=== PATIENT | female | born 1980 | race Caucasian/White ===

== ENCOUNTER 2019-03-18 07:25 | Outpatient (RCR) | payer OTHER, SELFPAY | END 2019-03-26 00:01 | LOC: MAMMO 07:25 | PROVIDERS: Family Provider Family Medicine; Visit Provider Family Medicine | DX: Z79.01 Long term (current) use of anticoagulants (principal); Z95.4 Presence of other heart-valve replacement; Z12.31 Encounter for screening mammogram for malignant neoplasm of breast | CPT/HCPCS: 36415 ×3; 77067; 85610 ×3 ==

== ENCOUNTER 2019-03-29 07:45 | Outpatient (CLI) | payer OTHER, SELFPAY ==
[2019-03-29 08:48] LABS: INR 1.59 (0.8-1.2)
== END 2019-03-29 07:46 | disposition home or self-care (01) ==
LOC: LAB 07:48
PROVIDERS: Family Provider Family Medicine; PCP Family Medicine; Visit Provider Internal Medicine Cardiovascular Disease
DX: Z95.4 Presence of other heart-valve replacement (principal); Z79.01 Long term (current) use of anticoagulants
CPT/HCPCS: 36415; 85610

== ENCOUNTER → 2019-04-23 09:47 | Outpatient (BNVA) | payer OTHER, SELFPAY | PROVIDERS: Family Provider Family Medicine; PCP Family Medicine; Visit Provider Nurse Practitioner Women's Health | DX: Z01.89 Encounter for other specified special examinations (principal) ==

== ENCOUNTER → 2019-04-26 12:32 | Outpatient (BNVA) | payer OTHER, SELFPAY | PROVIDERS: Family Provider Family Medicine; PCP Family Medicine; Visit Provider Family Medicine | DX: Z95.2 Presence of prosthetic heart valve (principal) | CPT/HCPCS: 85610 ==

== ENCOUNTER → 2019-05-03 13:28 | Outpatient (BNVA) | payer OTHER, SELFPAY | PROVIDERS: Family Provider Family Medicine; PCP Family Medicine; Visit Provider Family Medicine | DX: Z95.2 Presence of prosthetic heart valve (principal) | CPT/HCPCS: 85610 ==

== ENCOUNTER → 2019-05-10 11:32 | Outpatient (BNVA) | payer OTHER, SELFPAY | PROVIDERS: Family Provider Family Medicine; PCP Family Medicine; Visit Provider Family Medicine | DX: Z95.2 Presence of prosthetic heart valve (principal) | CPT/HCPCS: 85610 ==

== ENCOUNTER → 2019-05-17 11:47 | Outpatient (BNVA) | payer OTHER, SELFPAY | PROVIDERS: Family Provider Family Medicine; PCP Family Medicine; Visit Provider Family Medicine | DX: Z95.2 Presence of prosthetic heart valve (principal); Z79.01 Long term (current) use of anticoagulants | CPT/HCPCS: 85610 ==

== ENCOUNTER 2019-06-21 07:29 | Outpatient (RCR) | payer OTHER, SELFPAY ==
[2019-05-31 07:55] LABS: INR 1.72 (0.8-1.2)
[2019-06-21 08:20] LABS: INR 1.94 (0.8-1.2)
== END 2019-06-25 23:59 | disposition home or self-care (01) ==
LOC: LAB 07:29
PROVIDERS: Family Provider Family Medicine; PCP Family Medicine; Visit Provider Internal Medicine Cardiovascular Disease
DX: Z79.01 Long term (current) use of anticoagulants (principal); Z95.4 Presence of other heart-valve replacement
CPT/HCPCS: 36415; 85610

== ENCOUNTER 2019-07-19 07:49 | Outpatient (RCR) | payer OTHER, SELFPAY ==
[2019-07-19 08:33] LABS: INR 2.03 (0.8-1.2)
== END 2019-07-25 23:59 | disposition home or self-care (01) ==
LOC: LAB 07:49
PROVIDERS: Family Provider Family Medicine; PCP Family Medicine; Visit Provider Internal Medicine Cardiovascular Disease
DX: Z95.4 Presence of other heart-valve replacement (principal); Z79.01 Long term (current) use of anticoagulants
CPT/HCPCS: 36415; 85610

== ENCOUNTER 2019-08-15 07:28 | Outpatient (RCR) | payer OTHER, SELFPAY | END 2019-08-25 23:59 | disposition home or self-care (01) | LOC: LAB 07:28 | PROVIDERS: PCP Family Medicine; Visit Provider Internal Medicine Cardiovascular Disease | DX: Z79.01 Long term (current) use of anticoagulants (principal) | CPT/HCPCS: 36415; 85610 ==

== ENCOUNTER 2019-09-12 07:40 | Outpatient (RCR) | payer OTHER, SELFPAY ==
[2019-09-12 08:59] LABS: INR 1.58 (0.8-1.2)
== END 2019-09-24 23:59 | disposition home or self-care (01) ==
LOC: LAB 07:40
PROVIDERS: PCP Family Medicine; Visit Provider Internal Medicine Cardiovascular Disease
DX: Z79.01 Long term (current) use of anticoagulants (principal); Z95.4 Presence of other heart-valve replacement
CPT/HCPCS: 36415; 85610

== ENCOUNTER 2019-09-26 07:27 | Outpatient (CLI) | payer OTHER, SELFPAY ==
[2019-09-26 08:59] LABS: INR 1.54 (0.8-1.2)
== END 2019-09-26 07:28 | disposition home or self-care (01) ==
LOC: LAB 07:32
PROVIDERS: PCP Family Medicine; Visit Provider Internal Medicine Cardiovascular Disease
DX: Z79.01 Long term (current) use of anticoagulants (principal)
CPT/HCPCS: 36415; 85610

== ENCOUNTER 2019-10-10 07:24 | Outpatient (CLI) | payer OTHER, SELFPAY ==
[2019-10-10 07:59] LABS: INR 1.77 (0.8-1.2)
== END 2019-10-10 07:25 | disposition home or self-care (01) ==
LOC: LAB 07:26
PROVIDERS: PCP Family Medicine; Visit Provider Internal Medicine Cardiovascular Disease
DX: Z79.01 Long term (current) use of anticoagulants (principal); Z95.4 Presence of other heart-valve replacement
CPT/HCPCS: 85610

== ENCOUNTER 2019-10-24 07:28 | Outpatient (RCR) | payer OTHER, SELFPAY ==
[2019-10-24 08:17] LABS: INR 1.69 (0.8-1.2)
== END 2019-10-25 23:59 | disposition home or self-care (01) ==
LOC: LAB 07:28
PROVIDERS: PCP Family Medicine; Visit Provider Internal Medicine Cardiovascular Disease
DX: Z79.01 Long term (current) use of anticoagulants (principal); Z95.4 Presence of other heart-valve replacement
CPT/HCPCS: 36415; 85610

== ENCOUNTER 2019-11-21 07:25 | Outpatient (RCR) | payer OTHER, SELFPAY ==
[2019-11-07 08:07] LABS: INR 2.08 (0.8-1.2)
[2019-11-21 08:13] LABS: INR 1.87 (0.8-1.2)
== END 2019-11-25 23:59 | disposition home or self-care (01) ==
LOC: LAB 07:25
PROVIDERS: PCP Family Medicine; Visit Provider Internal Medicine Cardiovascular Disease
DX: Z79.01 Long term (current) use of anticoagulants (principal); Z95.4 Presence of other heart-valve replacement
CPT/HCPCS: 36415; 85610

== ENCOUNTER 2019-12-19 07:32 | Outpatient (RCR) | payer OTHER, SELFPAY ==
[2019-12-19 08:35] LABS: INR 1.87 (0.8-1.2)
== END 2019-12-25 23:59 | disposition home or self-care (01) ==
LOC: LAB 07:32
PROVIDERS: PCP Family Medicine; Visit Provider Internal Medicine Cardiovascular Disease
DX: Z79.01 Long term (current) use of anticoagulants (principal); Z95.4 Presence of other heart-valve replacement
CPT/HCPCS: 36415; 85610

== ENCOUNTER 2020-01-11 12:45 | Emergency (ER) | payer OTHER, SELFPAY ==
[2020-01-11 12:49] VITALS: BP 176/98; PULSE 116; RESP 14; TEMP 36.5; O2SAT 97; BMI 45.3
--- NOTE | 2020-01-11 13:13 | W.ED.WOUNDLC ---
HPI - Wound/Laceration General: Chief Complaint: Wound/Laceration Stated Complaint: left finger lacerations Time Seen by Provider: 01/11/20 12:52 History of Present Illness: HPI narrative: Patient cut left index finger with a kitchen knife while trying to open a brown bag sugar just a few months ago Onset (ago): minute(s) Extremity Location: Left: hand Place: home Patient tetanus UTD: Yes Context: accidental Associated symptoms: Reports no associated symptoms; Denies chills or fever(s) Treatments prior to arrival: bandage Review of Systems Const: Denies: fever(s) or chills Skin/Breast: Reports: other (Laceration left index finger) Physical Exam Const: COMMON NORMALS: no acute distress Psych: COMMON NORMALS: mental status grossly normal Skin: OTHER: 1 inch laceration left index finger distal aspect Procedures Laceration Laceration 1: Site: hand Side (If applicable): left Size (cm): 3 Description: linear and irregular Depth: simple, single layer Local Anesthetic: lidocaine 1% and with epi Amount of anesthesia used (mL): 2 Pre-repair: deep structures intact Skin layer closed with: nylon Size (cm): 4-0 Number of sutures: 4 Technique: simple, interrupted Course Vital Signs: Vital signs: Vital Signs Temperature 97.7 F 01/11/20 12:49 Pulse Rate 116 H 01/11/20 12:49 Respiratory Rate 14 01/11/20 12:49 Blood Pressure 176/98 01/11/20 12:49 Pulse Oximetry 97 01/11/20 12:49 Discharge Plan Discharge Patient Disposition: Home Clinical Impression: Laceration Condition: Stable Discharge Orders: Discharge Order (Routine); Ordered 01/11/20 Ordered By: Michael Crowder Discharge Diet: Usual diet Discharge Activity: Resume usual activity Patient Instructions: Suture Care (ED) Activity Restrictions/Additional Instructions: Full instructions and suture care handout. Have sutures removed in 7 days. Change dressing every 24 hours. Discharge Date/Time: 01/11/20 13:27 Coding Level of Care Code ED [employer] Super[employer] for Andrea Fwd Exam Expanded Problem Focused
== END 2020-01-11 13:27 | disposition home or self-care (01) ==
LOC: ER 13:35
PROVIDERS: Emergency Provider Nurse Practitioner Family; PCP Family Medicine
DX: S61.211A Laceration without foreign body of left index finger without damage to nail, initial encounter (principal); W26.0XXA Contact with knife, initial encounter
CPT/HCPCS: 12002; 12345; 99281; 99282

== ENCOUNTER 2020-01-16 07:27 | Outpatient (RCR) | payer OTHER, SELFPAY ==
[2020-01-16 08:11] LABS: INR 1.65 (0.8-1.2)
== END 2020-01-25 23:59 | disposition home or self-care (01) ==
LOC: LAB 07:27
PROVIDERS: PCP Family Medicine; Visit Provider Student in an Organized Health Care Education/Training Program
DX: Z79.01 Long term (current) use of anticoagulants (principal); Z95.4 Presence of other heart-valve replacement
CPT/HCPCS: 36415; 85610

== ENCOUNTER 2020-01-30 07:28 | Outpatient (RCR) | payer OTHER, SELFPAY ==
[2020-01-30 08:41] LABS: INR 2.18 (0.8-1.2)
== END 2020-02-24 23:59 | disposition home or self-care (01) ==
LOC: LAB 07:28
PROVIDERS: PCP Family Medicine; Visit Provider Student in an Organized Health Care Education/Training Program
DX: Z79.01 Long term (current) use of anticoagulants (principal)
CPT/HCPCS: 36415; 85610

== ENCOUNTER 2020-02-27 07:19 | Outpatient (CLI) | payer OTHER, SELFPAY | END 2020-02-27 07:20 | disposition home or self-care (01) | LOC: LAB 07:22 | PROVIDERS: PCP Family Medicine; Visit Provider Student in an Organized Health Care Education/Training Program | DX: Z79.01 Long term (current) use of anticoagulants (principal) | CPT/HCPCS: 36415; 85610 ==

== ENCOUNTER 2020-03-26 07:17 | Outpatient (CLI) | payer OTHER, SELFPAY ==
[2020-03-26 08:05] LABS: INR 1.81 (0.8-1.2)
== END 2020-03-26 07:18 | disposition home or self-care (01) ==
LOC: LAB 07:23
PROVIDERS: PCP Family Medicine; Visit Provider Student in an Organized Health Care Education/Training Program
DX: Z79.01 Long term (current) use of anticoagulants (principal); Z95.4 Presence of other heart-valve replacement
CPT/HCPCS: 36415; 85610

== ENCOUNTER 2020-04-23 07:28 | Outpatient (CLI) | payer OTHER, SELFPAY ==
[2020-04-23 08:35] LABS: INR 2.17 (0.8-1.2)
== END 2020-04-23 07:29 | disposition home or self-care (01) ==
LOC: LAB 07:31
PROVIDERS: PCP Family Medicine; Visit Provider Student in an Organized Health Care Education/Training Program
DX: Z79.01 Long term (current) use of anticoagulants (principal); Z95.4 Presence of other heart-valve replacement
CPT/HCPCS: 36415; 85610

== ENCOUNTER 2020-05-21 07:26 | Outpatient (CLI) | payer OTHER, SELFPAY ==
[2020-05-21 08:08] LABS: INR 1.78 (0.8-1.2)
== END 2020-05-21 07:27 | disposition home or self-care (01) ==
PROVIDERS: PCP Family Medicine; Visit Provider Student in an Organized Health Care Education/Training Program
DX: Z79.01 Long term (current) use of anticoagulants (principal)
CPT/HCPCS: 85610

== ENCOUNTER 2020-06-19 07:29 | Outpatient (CLI) | payer OTHER, SELFPAY ==
[2020-06-19 08:06] LABS: INR 1.67 (0.8-1.2)
== END 2020-06-19 07:30 | disposition home or self-care (01) ==
LOC: LAB 07:31
PROVIDERS: PCP Family Medicine; Visit Provider Student in an Organized Health Care Education/Training Program
DX: Z79.01 Long term (current) use of anticoagulants (principal)
CPT/HCPCS: 36415; 85610

== ENCOUNTER 2020-07-17 07:29 | Outpatient (CLI) | payer OTHER, SELFPAY | END 2020-07-17 07:30 | disposition home or self-care (01) | PROVIDERS: PCP Family Medicine; Visit Provider Student in an Organized Health Care Education/Training Program | DX: Z79.01 Long term (current) use of anticoagulants (principal); Z95.4 Presence of other heart-valve replacement | CPT/HCPCS: 36415; 85610 ==

== ENCOUNTER 2020-08-14 11:22 | Outpatient (CLI) | payer OTHER, SELFPAY ==
[2020-08-14 11:56] LABS: INR 1.79 (0.8-1.2)
== END 2020-08-14 11:23 | disposition home or self-care (01) ==
LOC: LAB 11:24
PROVIDERS: PCP Family Medicine; Visit Provider Student in an Organized Health Care Education/Training Program
DX: Z95.4 Presence of other heart-valve replacement (principal); Z79.01 Long term (current) use of anticoagulants
CPT/HCPCS: 85610

== ENCOUNTER 2020-09-11 07:27 | Outpatient (CLI) | payer OTHER, SELFPAY ==
[2020-09-11 08:12] LABS: INR 1.99 (0.8-1.2)
== END 2020-09-11 07:28 | disposition home or self-care (01) ==
LOC: LAB 07:30
PROVIDERS: PCP Family Medicine; Visit Provider Student in an Organized Health Care Education/Training Program
DX: Z79.01 Long term (current) use of anticoagulants (principal); Z95.4 Presence of other heart-valve replacement
CPT/HCPCS: 36415; 85610

== ENCOUNTER 2020-10-09 07:26 | Outpatient (CLI) | payer OTHER, SELFPAY ==
[2020-10-09 08:49] LABS: INR 2.42 (0.8-1.2)
== END 2020-10-09 07:27 | disposition home or self-care (01) ==
LOC: LAB 07:31
PROVIDERS: PCP Family Medicine; Visit Provider Student in an Organized Health Care Education/Training Program
DX: Z79.01 Long term (current) use of anticoagulants (principal)
CPT/HCPCS: 36415; 85610

== ENCOUNTER 2020-11-06 07:58 | Outpatient (CLI) | payer OTHER, SELFPAY ==
[2020-11-06 09:27] LABS: INR 2.05 (0.8-1.2)
== END 2020-11-06 07:59 | disposition home or self-care (01) ==
LOC: LAB 08:01
PROVIDERS: PCP Family Medicine; Visit Provider Student in an Organized Health Care Education/Training Program
DX: Z95.4 Presence of other heart-valve replacement (principal); Z79.01 Long term (current) use of anticoagulants
CPT/HCPCS: 36415; 85610

== ENCOUNTER 2020-12-04 07:28 | Outpatient (CLI) | payer OTHER, SELFPAY | END 2020-12-04 07:29 | disposition home or self-care (01) | LOC: LAB 07:32 | PROVIDERS: PCP Family Medicine; Visit Provider Student in an Organized Health Care Education/Training Program | DX: Z79.01 Long term (current) use of anticoagulants (principal); Z95.4 Presence of other heart-valve replacement | CPT/HCPCS: 85610 ==

== ENCOUNTER → 2021-01-01 15:00 | Outpatient (BNVA) | payer OTHER, SELFPAY | PROVIDERS: PCP Family Medicine; Visit Provider Student in an Organized Health Care Education/Training Program | DX: Z79.01 Long term (current) use of anticoagulants (principal) | CPT/HCPCS: 85610 ==

== ENCOUNTER 2021-01-29 07:46 | Outpatient (CLI) | payer OTHER, SELFPAY ==
[2021-01-29 08:13] LABS: INR 1.56 (0.8-1.2)
== END 2021-01-29 07:47 | disposition home or self-care (01) ==
LOC: LAB 07:50
PROVIDERS: PCP Family Medicine; Visit Provider Student in an Organized Health Care Education/Training Program
DX: Z79.01 Long term (current) use of anticoagulants (principal); Z95.2 Presence of prosthetic heart valve
CPT/HCPCS: 36415; 85610

== ENCOUNTER 2021-03-04 07:14 | Outpatient (CLI) | payer OTHER, SELFPAY ==
[2021-03-04 08:39] LABS: INR 1.86 (0.8-1.2)
== END 2021-03-04 07:15 | disposition home or self-care (01) ==
PROVIDERS: PCP Family Medicine; Visit Provider Student in an Organized Health Care Education/Training Program
DX: Z79.01 Long term (current) use of anticoagulants (principal); Z95.2 Presence of prosthetic heart valve
CPT/HCPCS: 36415; 85610

== ENCOUNTER 2021-04-02 07:06 | Outpatient (CLI) | payer OTHER, SELFPAY ==
[2021-04-02 07:53] LABS: INR 1.85 (0.8-1.2)
== END 2021-04-02 07:07 | disposition home or self-care (01) ==
PROVIDERS: PCP Family Medicine; Visit Provider Student in an Organized Health Care Education/Training Program
DX: Z79.01 Long term (current) use of anticoagulants (principal); Z95.2 Presence of prosthetic heart valve
CPT/HCPCS: 85610

== ENCOUNTER 2021-05-07 07:24 | Outpatient (CLI) | payer OTHER, SELFPAY ==
[2021-05-07 08:10] LABS: INR 1.86 (0.8-1.2)
== END 2021-05-07 07:25 | disposition home or self-care (01) ==
PROVIDERS: PCP Family Medicine; Visit Provider Student in an Organized Health Care Education/Training Program
DX: Z95.2 Presence of prosthetic heart valve (principal); Z79.01 Long term (current) use of anticoagulants
CPT/HCPCS: 85610

== ENCOUNTER 2021-06-04 07:04 | Outpatient (CLI) | payer OTHER, SELFPAY ==
[2021-06-04 07:36] LABS: INR 1.68 (0.8-1.2)
== END 2021-06-04 07:05 | disposition home or self-care (01) ==
LOC: LAB 07:10
PROVIDERS: PCP Family Medicine; Visit Provider Student in an Organized Health Care Education/Training Program
DX: Z79.01 Long term (current) use of anticoagulants (principal); Z95.2 Presence of prosthetic heart valve
CPT/HCPCS: 36415; 85610

== ENCOUNTER 2021-08-10 07:15 | Outpatient (CLI) | payer OTHER, SELFPAY ==
[2021-08-10 08:20] LABS: INR 2.02 (0.8-1.2)
== END 2021-08-10 07:16 | disposition home or self-care (01) ==
PROVIDERS: PCP Family Medicine; Visit Provider Student in an Organized Health Care Education/Training Program
DX: Z95.4 Presence of other heart-valve replacement (principal); Z79.01 Long term (current) use of anticoagulants
CPT/HCPCS: 85610

== ENCOUNTER 2021-09-07 07:13 | Outpatient (CLI) | payer OTHER, SELFPAY ==
[2021-09-07 08:07] LABS: INR 2.02 (0.8-1.2)
== END 2021-09-07 07:14 | disposition home or self-care (01) ==
LOC: LAB 07:15
PROVIDERS: PCP Family Medicine; Visit Provider Student in an Organized Health Care Education/Training Program
DX: Z79.01 Long term (current) use of anticoagulants (principal); Z95.4 Presence of other heart-valve replacement
CPT/HCPCS: 36415; 85610

== ENCOUNTER 2021-10-05 07:06 | Outpatient (CLI) | payer OTHER, SELFPAY ==
[2021-10-05 07:44] LABS: INR 1.92 (0.8-1.2)
== END 2021-10-05 07:07 | disposition home or self-care (01) ==
LOC: LAB 07:10
PROVIDERS: PCP Family Medicine; Visit Provider Student in an Organized Health Care Education/Training Program
DX: Z95.4 Presence of other heart-valve replacement (principal); Z79.01 Long term (current) use of anticoagulants
CPT/HCPCS: 36415; 85610